=== PATIENT | female | born 1975 | race Caucasian/White ===

== ENCOUNTER → 2021-01-07 | Outpatient (CLI) | payer OTHER ==
[~2021-01-07] MED LIST: KEFLEX CAP 500500 MG PO
== END ==
LOC: LAB 20:35
DX: N39.0 Urinary tract infection, site not specified (principal); R82.998 Other abnormal findings in urine; I69.351 Hemiplegia and hemiparesis following cerebral infarction affecting right dominant side; R33.9 Retention of urine, unspecified; E11.40 Type 2 diabetes mellitus with diabetic neuropathy, unspecified; F32.9 Major depressive disorder, single episode, unspecified; F41.9 Anxiety disorder, unspecified; I10 Essential (primary) hypertension; I69.390 Apraxia following cerebral infarction; I69.391 Dysphagia following cerebral infarction; K21.9 Gastro-esophageal reflux disease without esophagitis; M62.81 Muscle weakness (generalized); R54 Age-related physical debility
CPT/HCPCS: 81001; 87077; 87086; 87186

== ENCOUNTER 2021-01-14 10:24 | Emergency (ER) | payer OTHER | END 2021-01-14 12:59 | disposition admitted as inpatient to this hospital (09) | LOC: ER1 10:24 | PROVIDERS: Surgery | PROC: 0DH63UZ Insertion of Feeding Device into Stomach, Percutaneous Approach (ICD-10-PCS; principal; 2021-01-14 13:07) | DX: K94.23 Gastrostomy malfunction (principal); K21.9 Gastro-esophageal reflux disease without esophagitis; E11.9 Type 2 diabetes mellitus without complications; I10 Essential (primary) hypertension; Z20.822 Contact with and (suspected) exposure to COVID-19; Z86.73 Personal history of transient ischemic attack (TIA), and cerebral infarction without residual deficits | CPT/HCPCS: 43762; 82962; 84703; 99284; J0690; J2704; J7040; U0002 ==

== ENCOUNTER 2021-04-06 10:02 | Emergency (ER) | payer OTHER | END 2021-04-06 12:35 | disposition home or self-care (01) | LOC: ER1 10:02 | DX: K94.23 Gastrostomy malfunction (principal); I10 Essential (primary) hypertension; E11.9 Type 2 diabetes mellitus without complications; Z86.73 Personal history of transient ischemic attack (TIA), and cerebral infarction without residual deficits | CPT/HCPCS: 74018; 99283; Q9963 ==

== ENCOUNTER → 2021-07-14 | Outpatient (CLI) | payer OTHER | LOC: RAD 10:35 | DX: Z93.1 Gastrostomy status (principal) | CPT/HCPCS: 74018; Q9963 ==